=== PATIENT | male | born 1985 | race Caucasian/White ===

== ENCOUNTER → 2019-11-19 17:58 | Outpatient (CLI) | payer OTHER, SELFPAY ==
--- NOTE | 2019-11-19 18:05 | RAD_ITS ---
STUDY: X-RAY - LUMBAR SPINE REASON FOR EXAM: Male, 34 years old. Lower back pain TECHNIQUE: 5 view(s) of the lumbar spine were obtained. COMPARISON: None FINDINGS: There is no evidence of fracture or dislocation in the lumbar spine. The vertebral body heights are well-maintained. There is a cortical defect in the anterior superior endplate of L4 which likely represents a limbus vertebra. RAD/L/S Spine Min 4 Views IMPRESSION: No fracture or dislocation in the lumbar spine. Cortical defect in the anterior superior endplate of L4 which likely represents a limbus vertebra. Electronically Signed: Scar Brink, at 18:33 EDT Tel , Service support ,
== END ==
PROVIDERS: PCP Student in an Organized Health Care Education/Training Program; Visit Provider Student in an Organized Health Care Education/Training Program
DX: R69 Illness, unspecified (principal)
CPT/HCPCS: 72110